=== PATIENT | female | born 1980 | race Caucasian/White ===

== ENCOUNTER 2023-07-29 08:55 | Emergency (ER) | payer OTHER, SELFPAY ==
--- NOTE | ~2023-07-29 | XR_ITS ---
EXAMINATION: XR RIBS, RIGHT CLINICAL INFORMATION: Fall, right rib pain COMPARISON: None available. TECHNIQUE: 3 views of the right ribs were obtained. FINDINGS: Lungs are clear. No consolidation, pneumothorax, or pleural effusion. The cardiomediastinal silhouette and pulmonary vasculature are normal. Osseous structures are unremarkable. Ribs are intact. No fractures are identified. XR/XR ribs RT min 3V w CXR1V IMPRESSION: Unremarkable chest examination.
[2023-07-29 09:03] VITALS: BP 100/49; PULSE 88; RESP 18; TEMP 37; O2SAT 100; BMI 21.6
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
== END 2023-07-29 10:02 | disposition home or self-care (01) ==
PROVIDERS: Emergency Provider Emergency Medicine Emergency Medical Services
DX: R07.81 Pleurodynia (principal)
CPT/HCPCS: 71101; 99283; 99284